=== PATIENT | male | born 1975 | race Caucasian/White ===

== ENCOUNTER 2017-08-13 09:17 | Emergency (ER) | payer SELFPAY ==
[~2017-08-13] VITALS: Ht 167.6 cm; Wt 64.4 kg
[2017-08-13 11:03] LABS: HEMATOCRIT 47.3 % (38.0-50.0); HEMOGLOBIN 16.7 G/DL (12.5-16.6); MCH 31.4 PG (29.0-34.0); MCHC 35.3 G/DL (30.0-36.0); MCV 88.9 FL (86-99); PLATELET COUNT 136 K/uL (156-360); RBC DIS.WIDTH-CV 13.4 % (11.8-14.6); RBC DIS.WIDTH-SD 43.4 % (39-53); RED BLOOD COUNT 5.32 M/uL (4.00-5.50); WHITE BLOOD COUNT 11.3 K/uL (4.1-10.2)
[2017-08-13 11:37] LABS: CHLORIDE 110 MEQ/L (99-109); POTASSIUM 4.4 MEQ/L (3.7-5.4); SODIUM 145 MEQ/L (136-147)
[2017-08-13 11:43] LABS: CREATININE 0.8 MG/DL (0.6-1.3); GFR ESTIMATE (CALCULATED) > 59 mL/min/ (58.99-99999); GLUCOSE 90 mg/dL (70-99); SERUM ETHYL ALCOHOL 13 mg/dL; UREA NITROGEN (BUN) 14 mg/dL (9-23)
[2017-08-13 12:15] LABS: ALBUMIN 4.7 G/DL (3.2-4.8); DIRECT BILIRUBIN 0.1 mg/dL (0.0-0.3); TOTAL BILIRUBIN 0.5 MG/DL (0.0-1.0)
[2017-08-13 12:21] LABS: ALKALINE PHOSPHATASE 45 IU/L (3-129); ALT (GPT) 167 IU/L (3-49); AST (GOT) 85 IU/L (2-34); TOTAL PROTEIN 7.5 G/DL (6.4-8.3)
[2017-08-13 12:25] LABS: AMPHETAMINE NEGATIVE (500 ng/mL); BARBITURATES NEGATIVE (200 ng/mL); BENZODIAZEPINES PRESUMPTIVE POSITIVE (150 ng/mL); BUPRENORPHINE NEGATIVE (10 ng/mL); COCAINE NEGATIVE (150 ng/mL); METHADONE NEGATIVE (200 ng/mL); METHAMPHETAMINE NEGATIVE (500 ng/mL); OPIATES (MORPHINE) NEGATIVE (100 ng/mL); OXYCODONE NEGATIVE (100 ng/mL); PHENCYCLIDINE NEGATIVE (25 ng/mL); PROPOXYPHENE NEGATIVE (300 ng/mL); THC CANNABINOIDS NEGATIVE (50 ng/mL); TRICYCLIC ANTIDEPRESSANTS NEGATIVE (300 ng/mL)
[2017-08-13 13:05] LABS: BENZODIAZEPINES, URINE SCREEN Negative (200 ng/mL)
[2017-08-13 13:23] LABS: ACETAMINOPHEN (TYLENOL) < 10 MCG/ML (10-30); SALICYLATE < 3.0 MG/DL (15-30)
[2017-08-13 18:28] VITALS: BP 108/77
== END 2017-08-13 18:41 | disposition home or self-care (01) ==
LOC: EME 09:17
PROVIDERS: Nurse Practitioner Family
DX: F10.129 Alcohol abuse with intoxication, unspecified (principal); Y90.0 Blood alcohol level of less than 20 mg/100 ml; F32.9 Major depressive disorder, single episode, unspecified; F11.90 Opioid use, unspecified, uncomplicated; F19.99 Other psychoactive substance use, unspecified with unspecified psychoactive substance-induced disorder
CPT/HCPCS: 70450; 80048; 80076; 82140; 84999; 85027; 90839; 99281; 99285; G0480